=== PATIENT | female | born 1995 | race Caucasian/White ===

== ENCOUNTER 2017-01-18 10:22 | Inpatient (IN) | payer OTHER ==
[2017-01-18] VITALS (42 sets, daily range): BP systolic 106–135; BP diastolic 52–90; PULSE 70–189; RESP 17–20; TEMP 98.1–98.5; O2SAT 99
[~2017-01-18] VITALS: Ht 162.6 cm; Wt 68.9 kg
[~2017-01-18 10:22] MED LIST: PREN1CAP7 PO
--- NOTE | 2017-01-18 10:34 | HHI.HP ---
HPI Chief Complaint Induction of Labor Date Seen: Jan 18, 2017 Time Seen: 10:40 (Ronan Waters MD R2) Travel History International Travel<30 Days: No Contact w/Intl Traveler<30Days: No (Ronan Waters MD) History of Present Illness HPI 21 year old at 41 weeks gestation with DEOBRAH of January 11 presents for induction of labor due to post-dates . She has good movement. Feels irregular contractions. No vaginal bleeding or leakage of fluid. She has no headache, blurry vision, chest pain, shortness of breath, abdominal pain, nausea, vomiting, diarrhea, or calf tenderness. She reports no complications during this . She is a patient of [facility]. (Ronan Waters MD) History Past Medical History Narrative Medical None (Ronan Waters MD) Obstetric History Obstetric History Blood type O Rh positive Rubella immune VDRL negative HbSag normal Chlamydia positive initially, negative 09/16/16 Gonorrhea negative Hep B negative GBS negative (obtained 12/14/16) Hgb 12.6 Hct 37.8 Failed 1 hr and passed 3 hr glucose test Last sonogram 12/14/16: good growth, 8/8 BPP (Ronan Waters MD R2) Past Surgical History Narrative Surgical None (Ronan Waters MD) Family History Narrative Family History None significant (Ronan Waters MD) Social History Alcohol Use: No Tobacco Use: No Substance Abuse: No (Ronan Waters MD) Allergies-Medications (Allergen,Severity, Reaction): Coded Allergies: Amoxicillin (Verified Allergy, Unknown, 01/18/17) Penicillin (Verified Allergy, Unknown, 01/18/17) Comments breaks out in a rash (Ronan Waters MD R2) Home Meds Active Scripts W/O Vit A W/ Fe Fumar (Citranatal Jackman)27-1-260 Mg Cap1 Cap PO DAILY #30 CAP Ref 11 Prov:Laureen Mitchell CNM [facility] 09/29/16 Review of Systems Except as stated in HPI: all other systems reviewed are Neg (Ronan Waters MD R2) Physical Exam Narrative GENERAL: Well-nourished, well-developed patient. SKIN: Warm and dry. HEAD: Normocephalic and atraumatic. EYES: No scleral icterus. No injection or drainage. ENT: No nasal drainage noted. Mucous membranes pink. Airway patent. NECK: Supple, trachea midline. No JVD. CARDIOVASCULAR: Regular rate and rhythm without murmurs, gallops, or rubs. RESPIRATORY: Breath sounds equal bilaterally. No accessory muscle use. ABDOMEN/GI: Abdomen soft, non-tender, bowel sounds present, no rebound, no guarding Gravid to 41 weeks size GENITOURINARY: External Genitalia: intact and normal in appearance Dilatation: 4 Effacement: 80% Station: -3 Presentation: Membranes: intact Uterine Contractions: q5mins FHT's: Category: 1 Baseline: 140s Reactive: yes Variability: moderate Decels: none EXTREMITIES: No cyanosis or edema. BACK: Nontender without obvious deformity. No CVA tenderness. NEUROLOGICAL: Awake and alert. (Ronan Waters MD R2) Data Data Vital Signs Reviewed: Yes (Ronan Waters MD R2) Assessment/Plan Assessment and Plan 21 year old at 41 weeks gestation admitted for induction of labor due to post-dates . Lowe score of 7. Having regular contractions on monitor. - Rapid GBS, as initial GBS test is negative but 5 weeks old. - Continuous monitoring - Pitocin at 2-1-30. - Monitor for tachysystole, distress. - Anticipate vaginal delivery. Discussed with Dr. Flores (Ronan Waters MD R2) Attending Attestation The exam, history, and the medical decision-making described in the above note were completed with the assistance of the resident provider. I reviewed and agree with the findings presented. I attest that I had a [id number] encounter with the patient on the same day, and personally performed and documented my assessment and findings in the medical record. (Leti Flores MD) Ronan Waters MD R2 Jan 18, 2017 10:34 Leti Flores MD Jan 18, 2017 12:06
[2017-01-18] MEDS ORDERED: LACTATED RINGER'S 1000 ML INJ 1,000 ML IV PRN (10:54)
[2017-01-18] MEDS: LACTATED RINGER'S 1000 ML INJ 1,000 ML IV SCH ×2 (10:58→13:54)
[2017-01-18] MEDS ORDERED: OXYTOCIN 30 UNITS-500ML PREMIX 500 ML IV ONE (11:00)
[2017-01-18] MEDS ORDERED: SODIUM CHLORIDE 0.9% FLUSH 5 ML FLUSH IV FLUSH PRN (11:00)
[2017-01-18] MEDS ORDERED: SODIUM CHLORID 0.9% 500 ML INJ 500 ML IV PRN (11:00)
[2017-01-18] MEDS ORDERED: CITRIC ACID-SODIUM CITRATE LIQ 30 ML UDC PO SCH (11:00)
[2017-01-18] MEDS ORDERED: SODIUM CHLORIDE 0.9% FLUSH 5 ML FLUSH IV FLUSH SCH (11:00)
[2017-01-18] MEDS ORDERED: LIDOCAINE HCL 1% 50 ML VIAL I-DERMAL PRN (11:00)
[2017-01-18] MEDS ORDERED: LIDOCAINE HCL 1% 50 ML VIAL INFIL PRN (11:00)
[2017-01-18] MEDS ORDERED: MINERAL OIL 10 ML VIAL TOPICAL PRN (11:00)
[2017-01-18] MEDS ORDERED: SODIUM CHLOR 0.9% 1000 ML INJ 1,000 ML IV PRN (11:14)
[2017-01-18] MEDS ORDERED: OXYTOCIN 30 UNITS-500ML PREMIX 500 ML IV SCH (11:30)
[2017-01-18] MEDS ORDERED: MISOPROSTOL 25 MCG SUPP VAGINAL ONE (11:30)
[2017-01-18 11:38] LABS: AUTOMATED NEUTROPHIL # 8.3 TH/MM3 (1.8-7.7); BASOPHIL % 0.2 % (0.0-2.0); EOSINOPHIL # 0.1 TH/MM3 (0-0.4); EOSINOPHIL % 0.7 % (0.0-4.0); HEMATOCRIT 39.7 % (35.0-46.0); HEMO FLAGS DIFF FINAL; LYMPH % 15.3 % (9.0-44.0); LYMPHOCYTE # 1.7 TH/MM3 (1.0-4.8); MEAN CELL VOLUME 90.7 FL (80.0-100.0); MEAN CORPUSCULAR HEMOGLOBIN 31.3 PG (27.0-34.0); MEAN CORPUSCULAR HGB CONC 34.5 % (32.0-36.0); MONO % 7.7 % (0.0-8.0); NEUT % 76.1 % (16.0-70.0); PLATELET COUNT 231 TH/MM3 (150-450); RED BLOOD COUNT 4.38 MIL/MM3 (4.00-5.30); RED CELL DISTRIBUTION WIDTH 12.9 % (11.6-17.2); WHITE BLOOD COUNT 10.9 TH/MM3 (4.0-11.0)
[2017-01-18 11:58] LABS: BACTERIA, URINE RARE /hpf; BLOOD, URINE NEG (NEG); COMMENT (UR) CULT NOT INDICATED; CULTURE IF INDICATED CULT NOT INDICATED; GLUCOSE,URINE NEG (NEG); KETONE, URINE TRACE mg/dL (NEG); NITRITE,URINE NEG (NEG); PH, URINE 6.5 (5.0-8.5); SQUAMOUS EPITHELIAL CELL URINE <1 /hpf (0-5); URINE COLOR YELLOW (YELLW/STRAW)
--- NOTE | 2017-01-18 14:01 | PD.LABORPN ---
Subjective Subjective Resting, using labor ball. Pain well controlled. Feeling contractions. Pain 2-3/ 10. Objective Vital Signs Vital Signs Date Time Temp Pulse Resp B/P Pulse Ox O2 Delivery O2 Flow Rate FiO2 01/18/17 13:00 83 120/80 01/18/17 12:40 17 01/18/17 12:35 79 125/78 01/18/17 12:00 92 119/86 01/18/17 11:30 83 128/79 01/18/17 11:15 98.5 18 01/18/17 11:10 80 128/83 Objective Pelvic Exam: Dilatation: 5 cm Effacement: 80% Station: -3 Presentation: vertex Membranes: intact, bulging Uterine Contractions: q3mins FHT's: Category: 1 Baseline: 140's Reactive: yes Variability: moderate Decels: none Assessment/Plan Assessment and Plan 21 year old at 41 weeks gestation admitted for induction of labor due to post-dates . - Category 1 tracing - Feeling contractions - Pain well controlled - Continue to monitor - Oxytocin at 5 milliunits/min - GBS positive: penicillin allergic. Discussed with mom in the room. The reaction was a generalized rash while being treated for strep throat and occurred at the end of the course of treatment. There was no throat swelling, angioedema, or respiratory distress. Because this is a mild reaction, we will treat with Ancef. - Plan for vaginal delivery Ronan Waters MD R2 Jan 18, 2017 14:01
[2017-01-18] MEDS ORDERED: MISOPROSTOL 25 MCG SUPP VAGINAL PRN (15:00)
[2017-01-18] MEDS ORDERED: MEASLES, MUMPS, RUBELLA VACCINE 0.5 ML VIAL SQ ONE (16:00)
[2017-01-18] MEDS ORDERED: CLINDAMYCIN INJ 900 MG in SODIUM CHLORIDE 0.9% INJ 100 ML IV SCH ×2 (16:00→17:00)
[2017-01-18] MEDS ORDERED: DIPHTH/TETANUS/ACEL PERTUSSIS (BOOSTER) 0.5 ML VIAL/PFS IM ONE (16:00)
[2017-01-18] MEDS ORDERED: diphenhydrAMINE HCL 50 MG/ML VIAL IV PUSH PRN (16:15)
[2017-01-18] MEDS ORDERED: diphenhydrAMINE HCL 50 MG/ML VIAL ONE (16:15)
[2017-01-18] MEDS ORDERED: ePHEDrine/NS 25 MG/5 ML SYR ONE (16:40)
[2017-01-18] MEDS ORDERED: fentaNYL 2MCG-BUPIV 0.125% INJ 100 ML ONE (16:40)
[2017-01-18] MEDS ORDERED: ceFAZolin 2 GM PREMIX 50 ML IV ONE (17:00)
--- NOTE | 2017-01-18 18:55 | PD.OB.DELI ---
Anesthesia: Epidural Episiotomy: None Vaginal Delivery: Normal Presentation: Occiput anterior Nuchal Cord: x2 Delayed cord clamping (45 sec): Yes : Male One Minute : 8 Five Minute : 9 Infant Care: Spontaneous crying Placenta: Spontaneous delivery, Intact, 3 vessel cord Laceration: No lacerations Additional Information Normal delivery of male by , apgars 8/9. Delayed cord clamping for 1 min. Cord was clamped and cord blood collected. Dr. Chaudhry present for delivery. Attending Dr. Flores present at delivery. No lacerations requiring sutures obtained. Less than 200cc blood loss. Mother and baby doing well with skin to skin. (Mell Payne MD R1) Additional Information I was present and directly supervised the entire delivery procedure. (Leti Flores MD) Mell Payne MD R1 Jan 18, 2017 18:55 Leti Flores MD Jan 18, 2017 19:25
[2017-01-18] MEDS ORDERED: BENZOCAINE 20% TOPICAL SPRAY 60 ML CAN TOPICAL PRN (19:00)
[2017-01-18] MEDS ORDERED: IBUPROFEN 600 MG TAB PO PRN (19:00)
[2017-01-18] MEDS ORDERED: ONDANSETRON ODT 4 MG TAB PO PRN (19:00)
[2017-01-18] MEDS ORDERED: WITCH HAZEL 50%/GLYCERIN 12.5% 40 PAD JAR TOPICAL PRN (19:00)
[2017-01-18] MEDS ORDERED: SODIUM CHLORIDE 0.9% FLUSH 5 ML FLUSH IV PRN (19:00)
[2017-01-18] MEDS ORDERED: ACETAMINOPHEN 325 MG TAB PO PRN (19:00)
[2017-01-18] MEDS ORDERED: ALUMINUM/MAGNESIUM/SIMETH 30 ML CUP PO PRN (19:00)
[2017-01-18] MEDS ORDERED: DOCUSATE SODIUM 50 MG/SENNA 8.6 MG TAB PO PRN (19:00)
[2017-01-18] MEDS ORDERED: ZOLPIDEM TARTRATE 5 MG TAB PO PRN (19:00)
[2017-01-18] MEDS ORDERED: oxyCODONE/ACETAMINOPHEN 5 MG/325 MG TAB PO PRN ×2 (19:00)
[2017-01-18] MEDS ORDERED: ePHEDrine/NS 25 MG/5 ML SYR IV PRN (19:45)
[2017-01-18] MEDS ORDERED: DO NOT ADMINISTER ANTICOAGULANTS XX PRN (19:45)
[2017-01-18] MEDS ORDERED: fentaNYL 2MCG-BUPIV 0.125% 100 ML EPIDURAL SCH (19:45)
[2017-01-18] MEDS ORDERED: NO SYSTEM NARCOTICS XX PRN (19:45)
[2017-01-18] MEDS ORDERED: SODIUM CHLORIDE 0.9% FLUSH 5 ML FLUSH IV SCH (21:00)
--- NOTE | 2017-01-19 07:10 | HHI.OB ---
Subjective Post Day: 1 Remarks Post- day # 1. AFVSS overnight. Decreased lochia. Denies dysuria. No breast tenderness. She is feeding the baby via breast. Appetite good. Patient has had a bowel movement, notes a loose stool but ate a burger just after delivery last night. She denies fevers, chills, nausa, vomiting. Ambulating well. Denies calf pain or shortness of breath. (Mell Payne MD R1) Objective Vitals/I&O Vital Signs Date Time Temp Pulse Resp B/P Pulse Ox O2 Delivery O2 Flow Rate FiO2 01/18/17 20:00 18 01/18/17 19:46 100 109/62 01/18/17 19:45 98.5 01/18/17 19:45 18 01/18/17 19:30 94 116/82 01/18/17 19:17 18 01/18/17 19:15 74 125/72 01/18/17 19:13 18 01/18/17 19:00 83 123/69 01/18/17 19:00 18 01/18/17 18:46 87 106/52 01/18/17 18:00 98 135/87 01/18/17 17:50 83 01/18/17 17:45 85 120/68 01/18/17 17:45 83 01/18/17 17:40 78 01/18/17 17:39 75 01/18/17 17:39 117/56 01/18/17 17:37 128 01/18/17 17:35 150 01/18/17 17:32 156 01/18/17 17:31 183 01/18/17 17:30 94 01/18/17 17:25 87 01/18/17 17:20 95 117/90 01/18/17 17:20 189 01/18/17 17:16 108 124/65 01/18/17 17:15 99 01/18/17 17:15 85 01/18/17 17:11 78 120/68 01/18/17 17:10 88 99 01/18/17 17:05 87 01/18/17 17:05 99 01/18/17 17:05 76 126/87 01/18/17 17:00 77 128/74 01/18/17 16:55 86 125/75 01/18/17 16:55 70 01/18/17 16:51 74 120/65 01/18/17 16:50 78 01/18/17 16:49 90 122/65 01/18/17 15:21 98.1 20 01/18/17 15:16 80 115/71 01/18/17 14:01 80 109/76 01/18/17 13:55 75 121/76 01/18/17 13:00 83 120/80 01/18/17 12:40 17 01/18/17 12:35 79 125/78 01/18/17 12:00 92 119/86 01/18/17 11:30 83 128/79 01/18/17 11:15 98.5 18 01/18/17 11:10 80 128/83 Objective Remarks GENERAL: Well-nourished, well-developed female. CARDIOVASCULAR: Regular rate and rhythm without murmurs, gallops, or rubs. RESPIRATORY: Breath sounds equal bilaterally. No accessory muscle use. ABDOMEN/GI: Abdomen soft, non-tender. Fundus: Firm, non-tender at umbilicus. GENITOURINARY: Light to moderate bleeding. EXTREMITIES: No cyanosis or edema, non-tender, without signs of DVT. Medications and IVs Current Medications Medications (Trade) Dose Ordered Sig/Krista Route Start Time Stop Time Status Last Admin (NS Flush) 2 ml BID IV 01/18/17 21:00 01/18/17 22:50 (NS Flush) 2 ml UNSCH PRN IV 01/18/17 19:00 (Tylenol) 650 mg Q4H PRN PO 01/18/17 19:00 (Motrin) 600 mg Q6H PRN PO 01/18/17 19:00 01/18/17 22:49 (Percocet 5-325 Mg) 1 tab Q4H PRN PO 01/18/17 19:00 (Percocet 5-325 Mg) 2 tab Q4H PRN PO 01/18/17 19:00 (Americaine 20% Top Spr) 1 spray Q4H PRN TOPICAL 01/18/17 19:00 01/18/17 22:49 (Tucks Pads) 1 applic QID PRN TOPICAL 01/18/17 19:00 01/18/17 22:49 (Sandra-Colace) 2 tab Q12H PRN PO 01/18/17 19:00 01/18/17 22:49 (Ambien) 5 mg HS PRN PO 01/18/17 19:00 (Mag-Al Plus Susp Liq) 15 ml Q8H PRN PO 01/18/17 19:00 (Zofran Odt) 4 mg Q6H PRN PO 01/18/17 19:00 Miscellaneous Information No systemic narcotics to be given except... UNSCH PRN XX 01/18/17 19:45 01/19/17 19:44 Miscellaneous Information DO NOT ADMINISTER ANY ANTICOAGUL... UNSCH PRN XX 01/18/17 19:45 01/19/17 19:44 (fentaNYL 2MCG-BUPIV 0.125% INJ) 100 ml @ 0 mls/hr TITRATE EPIDURAL 01/18/17 19:45 (ePHEDrine/NS 25 MG/5 ML SYR) 10 mg UNSCH PRN IV 01/18/17 19:45 01/19/17 19:44 (Mell Payne MD R1) Assessment/Plan Assessment and Plan 21 y/o female who is PPD# 1 s/p of male. Loose stools: Will monitor. If new sx, will proceed with work-up for possible infx, though low on differential at this time. Likely related to heavy meal last night just post-. Post-: -Continue routine care. -Motrin PRN pain. -Encouraged OOB. -Re contraception: she will think about it. Pelvic rest for 6 weeks advised. -Anticipate discharge tomorrow. Discussed with Dr. Flores (Mell Payne MD R1) Attending Attestation The exam, history, and the medical decision-making described in the above note were completed with the assistance of the resident provider. I reviewed and agree with the findings presented. I attest that I had a [id number] encounter with the patient on the same day, and personally performed and documented my assessment and findings in the medical record. (Leti Flores MD) Mell Payne MD R1 Jan 19, 2017 07:10 Leti Flores MD Jan 19, 2017 07:38
[2017-01-19 20:00] VITALS: BP 125/79; PULSE 80; RESP 18; TEMP 98.2
[2017-01-20] MEDS ORDERED: IBUP-232 PO (06:58)
--- NOTE | 2017-01-20 06:58 | HHI.DCPOC ---
Discharge Care Plan Diagnosis: (1) Vaginal delivery Report Symptoms to Your Doctor -Temperate above 100.5 degrees -Redness, of incision or excessive or foul smelling drainage -Unusual pain or calf pain -Increased vaginal bleeding -Painful or difficulty urinating -Feelings of extreme sadness or anxiety after 2 weeks Goals to Promote Your Health * To prevent worsening of your condition and complications * To maintain your health at the optimal level Directions to Meet Your Goals Take your medications as prescribed Follow your dietary instruction Follow activity as directed Ensure plenty of rest for recovery Drink fluids for hydration Keep your appointments as scheduled Take your immunizations and boosters as scheduled If your symptoms worsen call your PCP, if no PCP go to Urgent Care Center or Emergency Room Smoking is Dangerous to Your Health. Avoid second hand smoke Call the 24-hour crisis hotline for domestic abuse at Mell Payne MD R1 Jan 20, 2017 06:58
--- NOTE | 2017-01-20 07:25 | HHI.OB ---
Subjective Remarks 21 year old PPD 2 after . Minimal lochia. Pain is well controlled, not needing pain medication currently. She is urinating and had bowel movement. She is ambulating without difficulty. She is interested in progesterone pill but would prefer to get it from her OB provider. She plans to follow with [facility]. She reports a history of anxiety and depression and reports these have been amplified since the delivery. She has no suicidal ideation, is tending to the baby normally, and is feeding via breast every 3 hours. She has no thoughts of self-harm or harm to the baby. Discussed the importance of following closely with her OB provider and educated her on post- depression and its treatable nature, and the need to get it treated. She needs to follow up with her OB provider within a week due to the depression and anxiety she is experiencing. Objective Vitals/I&O Vital Signs Date Time Temp Pulse Resp B/P Pulse Ox O2 Delivery O2 Flow Rate FiO2 01/19/17 20:00 80 125/79 01/19/17 20:00 98.2 18 Objective Remarks GENERAL: Comfortable CARDIOVASCULAR: Regular rate and rhythm without murmurs, gallops, or rubs. RESPIRATORY: Breath sounds equal bilaterally. No accessory muscle use. ABDOMEN/GI: Abdomen soft, non-tender. Fundus: Firm, non-tender at umbilicus. GENITOURINARY: Light to moderate bleeding. EXTREMITIES: No cyanosis or edema, non-tender, without signs of DVT. PSYCH; No suicidal ideation or thoughts of harm to the baby, normal judgment, sad affect Medications and IVs Current Medications Medications (Trade) Dose Ordered Sig/Krista Route Start Time Stop Time Status Last Admin (NS Flush) 2 ml BID IV 01/18/17 21:00 01/18/17 22:50 (NS Flush) 2 ml UNSCH PRN IV 01/18/17 19:00 (Tylenol) 650 mg Q4H PRN PO 01/18/17 19:00 (Motrin) 600 mg Q6H PRN PO 01/18/17 19:00 01/18/17 22:49 (Percocet 5-325 Mg) 1 tab Q4H PRN PO 01/18/17 19:00 (Percocet 5-325 Mg) 2 tab Q4H PRN PO 01/18/17 19:00 (Americaine 20% Top Spr) 1 spray Q4H PRN TOPICAL 01/18/17 19:00 01/18/17 22:49 (Tucks Pads) 1 applic QID PRN TOPICAL 01/18/17 19:00 01/18/17 22:49 (Sandra-Colace) 2 tab Q12H PRN PO 01/18/17 19:00 01/18/17 22:49 (Ambien) 5 mg HS PRN PO 01/18/17 19:00 01/19/17 22:55 (Mag-Al Plus Susp Liq) 15 ml Q8H PRN PO 01/18/17 19:00 Ondansetron HCl 4 mg 4 mg Q6H PRN PO 01/18/17 19:00 (fentaNYL 2MCG-BUPIV 0.125% INJ) 100 ml @ 0 mls/hr TITRATE EPIDURAL 01/18/17 19:45 Assessment/Plan Assessment and Plan 21 y/o female who is PPD# 2 s/p of male. -Continue routine care. -Motrin PRN pain. -Encouraged OOB. -Re contraception: she is interested in progesterone pill but prefers to wait until her OB appt. - Encourage exclusive - Possibly developing post- depression: needs to establish appt with OB provider within the week, education on post- depression. -Anticipate discharge today Discussed with Ronan Tai MD R2 Jan 20, 2017 07:25
[2017-01-20] MEDS ORDERED: SERTRALINE HCL 50 MG TAB PO ONE (14:45)
[2017-01-20] MEDS ORDERED: hydrOXYzine HCL 25 MG TAB PO PRN (14:45)
--- NOTE | 2017-01-20 14:55 | PD.CONS ---
Provisional Diagnosis Admission Date Jan 18, 2017 at 10:22 [place] I. Adjustment disorder with anxiety and depressed mood, R/O depression [place] II. Deferred [place] III. [place] IV. History of benzodiazepine abuse [place] V. 55 History of Present Illness Service Psychiatry Consult Requested By Primary Care Physician No Primary Care Physician HPI The patient is a 21-year-old woman, single, domiciled with her parents , unemployed, without any previous psychiatric history, no previous suicidal attempts, no previous psychiatric hospitalizations, history of cannabis and benzodiazepine use disorder, no significant medical history, other than PPD 2 after . Patient was consulted to psychiatry because she has developed symptomatology of anxiety and depression in the last months of her and symptoms are exacerbated now period. Patient was seen for psychiatric evaluation at bedside in the OBGym floor. Her boyfriend, father of her baby,Citlaly Vargas was present during the evaluation as patient requested. Patient is calm, cooperative and pleasant, she states that police in the last 3 months she has been feeling increasing anxiety and symptomatology of depression. She says that she has been worried most of the day about everything , with frequent episodes of panic attack and claustrophobia. She also endorses frequent sadness, now exacerbated after she gave , moments of tears, some pessimism, hopelessness, helplessness, poor sleep, frequent preoccupation about the care of the baby and about her future. She says that even that she lost her baby and she is motivated to raise him and to have a family "this is all kind of new for many and this is not the life I I've visualized years ago, I am not unhappy, but this is all new". She denies suicidal or homicidal ideation, she denies visual and auditory hallucinations. She reports a very good family support from the part of her and her family. Patient reports that before being she was using cannabis frequently, 2 or 3 times per week. She also uses occasional Xanax from the street, also toward 3 times per week, she stopped when she became . In the past she has used cocaine and amphetamine, but less frequently "usually in 1 or 2 Partes". She denies the use of alcohol. Patient clarifies that she would like to be treated for her symptoms of depression and anxiety, but at the same time she wants to lactate her baby and she doesn't want to take any medication that would harm him. Review of Systems Constitutional: DENIES: Diaphoretic episodes, Fatigue, Fever, Weight gain, Weight loss, Chills, Dizziness, Change in appetite, Night Sweats Endocrine: DENIES: Abnorml menstrual pattern, Heat/cold intolerance, Polydipsia , Polyuria, Polyphagia Respiratory: DENIES: Apneas, Cough, Snoring, Wheezing, Hemoptysis, Sputum production, Shortness of breath Cardiovascular: DENIES: Chest pain, Palpitations, Syncope, Dyspnea on Exertion , PND, Lower Extremity Edema, Orthopnea, Claudication Gastrointestinal: DENIES: Abdominal pain, Black stools, Bloody stools, Constipation, Diarrhea, Nausea, Vomiting, Difficulty Swallowing, Anorexia Genitourinary: DENIES: Abnormal vaginal bleeding, Dysmenorrhea, Dyspareunia, Sexual dysfunction, Urinary frequency, Urinary incontinence, Urgency, Hematuria , Dysuria, Nocturia, Vaginal discharge Musculoskeletal: DENIES: Joint pain, Muscle aches, Stiffness, Joint Swelling, Back pain, Neck pain Hematologic/lymphatic: DENIES: Bruising, Lymphadenopathy Immunologic/allergic: DENIES: Eczema, Urticaria Psychiatric: COMPLAINS OF: Anxiety, Depression Past Family Social History Coded Allergies: Amoxicillin (Verified Allergy, Unknown, 01/18/17) Penicillin (Verified Allergy, Unknown, 01/18/17) Active Scripts W/O Vit A W/ Fe Fumar (Citranatal [place]man)27-1-260 Mg Cap1 Cap PO DAILY #30 CAP Ref 11 Prov:Laureen Mitchell [facility] 09/29/16 Current Medications Medications (Trade) Dose Ordered Sig/Krista Route Start Time Stop Time Status Last Admin (NS Flush) 2 ml BID IV 01/18/17 21:00 01/18/17 22:50 (NS Flush) 2 ml UNSCH PRN IV 01/18/17 19:00 (Tylenol) 650 mg Q4H PRN PO 01/18/17 19:00 (Motrin) 600 mg Q6H PRN PO 01/18/17 19:00 01/18/17 22:49 (Percocet 5-325 Mg) 1 tab Q4H PRN PO 01/18/17 19:00 (Percocet 5-325 Mg) 2 tab Q4H PRN PO 01/18/17 19:00 (Americaine 20% Top Spr) 1 spray Q4H PRN TOPICAL 01/18/17 19:00 01/18/17 22:49 (Tucks Pads) 1 applic QID PRN TOPICAL 01/18/17 19:00 01/18/17 22:49 (Sandra-Colace) 2 tab Q12H PRN PO 01/18/17 19:00 01/18/17 22:49 (Ambien) 5 mg HS PRN PO 01/18/17 19:00 01/19/17 22:55 (Mag-Al Plus Susp Liq) 15 ml Q8H PRN PO 01/18/17 19:00 Ondansetron HCl 4 mg 4 mg Q6H PRN PO 01/18/17 19:00 (fentaNYL 2MCG-BUPIV 0.125% INJ) 100 ml @ 0 mls/hr TITRATE EPIDURAL 01/18/17 19:45 Family History She denies Social History Patient was born and raised in [place], she lives in [place] with her mother , she is planning now to go to live with her boyfriend and her baby and to start family, she is unemployed, supported by her mother, her highest level of education is high school. Physical Exam Vital Signs Vital Signs Date Time Temp Pulse Resp B/P Pulse Ox O2 Delivery O2 Flow Rate FiO2 01/19/17 20:00 80 125/79 01/19/17 20:00 98.2 18 01/18/17 17:15 99 Mental Status Examination Appearance young woman, age appearing, good hygiene, regular clothing, she is calm and cooperative Speech: Unremarkable Orientation: x3 Memory: Unremarkable Thought Process: Logical Hallucination Type: None Suicidal Ideation: No Homicidal Ideation: No Insight: Good Affect: Sad Affect if Inappropriate: Flat Mood: Sad Motor Activity: Normal gait Assessment & Plan Problem List: (1) Adjustment disorder with mixed anxiety and depressed mood Assessment & Plan: The patient is a 21-year-old woman, single, domiciled with her parents, unemployed, without any previous psychiatric history , no previous suicidal attempts, no previous psychiatric hospitalizations, history of cannabis and benzodiazepine use disorder, no significant medical history, other than PPD 2 after . Patient was consulted to psychiatry because she has developed symptomatology of anxiety and depression in the last months of her and symptoms are exacerbated now period. On psychiatric evaluation today patient is calm, cooperative, logical, coherent and relevant. She reports about 3 months symptomatology of combined depression/ anxiety exacerbated in the last day by the delivery of the baby and state. Patient reports anxiety in most of the day consistent in frequent preoccupations about the baby, about her family, about her future, her financial situations, sweating, tremors, headaches, and inability to control herself. He also reports some episodes of panic attack. Her depression is described as frequent crying spells, episodic sadness, problems sleeping, low energy, kind of generalized pessimism. But she denies suicidal ideation, she denies homicidal ideation, she denies visual and auditory hallucinations. No paranoia, no delirium, no delusions, no manic, no perceptual disturbances, agitation or aggressive behavior up served or reported at this time. Since patient is planning to lactate, and due to her history of benzodiazepine abuse, would avoid benzodiazepines for acute anxiety at this moment. Would prefer to 3 with an SSRI and anticholinergic medication for depression and anxiety. We'll start Zoloft 25 mg for depression and anxiety, since Zoloft is described as a safe medication for breast-feeding mothers. We will start hydroxyzine 15 mg every 3 hours when necessary anxiety and insomnia. animal care service worker intervention to set up an appointment for psychiatric follow-up in the community. Extensive support, motivation and psychoeducation provided. Consult appreciated. ICD Code: F43.23 Assessment & Plan Estimated LOS: Sony Ta MD Jan 20, 2017 14:54
[2017-01-20] MEDS ORDERED: PILL SPLITTER OTHER PRN (15:00)
[2017-02-23] MEDS ORDERED: SERT25TA83 PO (11:45)
[2017-03-09] MEDS ORDERED: SERT-132 PO (11:20)
[2017-03-09] MEDS ORDERED: ORTH0.35 PO (11:20)
== END 2017-01-20 18:03 | disposition home or self-care (01) | DRG 775 ==
LOC: H2EA 10:22 → H1EA 20:41
PROVIDERS: ADMIT Obstetrics & Gynecology; ATTEND Obstetrics & Gynecology
PROC: 10E0XZZ Delivery of Products of Conception, External Approach (ICD-10-PCS; principal; 2017-01-18)
DX: O48.0 Post-term pregnancy (principal); O99.344 Other mental disorders complicating childbirth; F53 Mental and behavioral disorders associated with the puerperium, not elsewhere classified; O69.81X0 Labor and delivery complicated by cord around neck, without compression, not applicable or unspecified; Z3A.41 41 weeks gestation of pregnancy; F43.23 Adjustment disorder with mixed anxiety and depressed mood; O99.824 Streptococcus B carrier state complicating childbirth; Z37.0 Single live birth
CPT/HCPCS: 59025; 81001; 85025; 86900; 86901; 87150; 90715; J1200; J2590; J3010; J7120